=== PATIENT | female | born 1990 | race Caucasian/White ===

== ENCOUNTER 2019-07-21 18:49 | Emergency (ER) | payer OTHER ==
[~2019-07-21] VITALS: Ht 157.5 cm; Wt 45.4 kg
[2019-07-21 19:22] LABS: ABSOLUTE BASOPHILS 0.1 thou/uL (0.0-0.2); ABSOLUTE LYMPHOCYTES 2.6 thou/uL (0.8-5.3); ABSOLUTE MONOCYTES 0.3 thou/uL (0.0-1.2); ABSOLUTE NEUTROPHILS 1.5 thou/uL (1.6-8.1); BASOPHILS 1.2 %; EOSINOPHILS 0.5 %; HEMATOCRIT 39.3 % (37.0-47.0); HEMOGLOBIN 13.6 gm/dL (12.0-15.0); MCH 34.7 pg (26.0-34.0); MCHC 34.5 g/dL (28.0-37.0); MCV 100.4 fL (80.0-100.0); MONOCYTES 7.8 %; MPV 8.3 fl. (7.2-11.1); NUCLEATED RBCS 0 /100WBC; PLATELET COUNT* 252 thou/uL (150-400); POLYS 33.5 %; RBC 3.91 mil/uL (4.20-5.00); WBC 4.5 thou/uL (4.0-11.0)
[2019-07-21 19:33] LABS: ANION GAP 11 mmol/L (7-16); BUN 5 mg/dL (7-18); CALCIUM 8.9 mg/dL (8.5-10.1); CHLORIDE 105 mmol/L (98-107); CO2 27 mmol/L (21-32); CREATININE 0.8 mg/dL (0.6-1.3); GLUCOSE 100 mg/dL (70-99); POTASSIUM 3.1 mmol/L (3.5-5.1); SODIUM 143 mmol/L (136-145)
[2019-07-21 19:34] LABS: URINE BILIRUBIN NEGATIVE (Negative); URINE BLOOD NEGATIVE (Negative); URINE CLARITY CLEAR; URINE COLOR YELLOW; URINE GLUCOSE-RANDOM NEGATIVE (Negative); URINE KETONES NEGATIVE (Negative); URINE LEUKOCYTES-REFLEX NEGATIVE (Negative); URINE NITRITE-REFLEX NEGATIVE (Negative); URINE PROTEIN NEGATIVE (Negative); URINE UROBILINOGEN 0.2 E.U./dl (0.2-1.0)
[2019-07-21 19:36] LABS: INR 1.1; PROTIME 11.3 Seconds (9.20-11.50)
[2019-07-21 19:40] LABS: AMP/METHAMP Negative (Negative); BARBITURATES Negative (Negative); BENZODIAZEPINES Negative (Negative); COCAINE Negative (Negative); METHADONE Negative (Negative); OPIATES Negative (Negative); PCP Negative (Negative); THC Negative (Negative)
[2019-07-21 19:48] LABS: ALBUMIN 4.6 g/dL (3.4-5.0); ALKALINE PHOSPHATASE 53 U/L (46-116); NT-PRO BRAIN NAT PEPTIDE 88 pg/mL (<300); SGOT 28 U/L (15-37); SGPT 26 U/L (30-65); TOTAL BILIRUBIN 0.1 mg/dL (<0.1-1.0); TOTAL PROTEIN 8.1 g/dL (6.4-8.2); TROPONIN-I LEVEL <0.06 ng/mL (<0.06)
[2019-07-21] MEDS ORDERED: KLOR-CON 1010 MEQ PO (20:03)
[2019-07-21 20:38] VITALS: BP 101/67
--- NOTE | 2019-07-22 10:44 | EKG ---
[place] [address] ELECTROCARDIOGRAM REPORT Name: TRACIENORMA OLIVE Room: [facility]#: [id number] Admission: 07/21/19 Attend Phys: Discharge: 07/21/19 Date of : 89 Report #: [id number] THIS REPORT FOR: //name// [facility] ED Test Date: 2019-07-21 Test Time: 18:58:14 Pat Name: NORMA HODGES Department: Room: Gender: F [employer]: [place] : 1990 Requested By: Alana Daniels Order Number: [id number] MD: Arden Wyman Measurements Intervals [place] Rate: 97 P: 71 AL: 170 QRS: 72 QRSD: 131 T: 20 QT: 366 QTc: 465 Interpretive Statements Sinus rhythm Incomplete right bundle-branch block, possible normal variant No previous ECG available for comparison Electronically Signed On 07-22-2019 10:43:47 CDT by Arden Wyman [email or web address] <ELECTRONICALLY SIGNED> By: Arden Wyman MD, FACC 07/22/19 1043 1858 1858 Arden Wyman MD, FAC /EPI
== END 2019-07-21 20:39 | disposition home or self-care (01) ==
LOC: M.ERS 18:49
PROVIDERS: Emergency Medicine
DX: E87.6 Hypokalemia (principal); R00.2 Palpitations; F17.210 Nicotine dependence, cigarettes, uncomplicated